=== PATIENT | female | born 1965 | race Caucasian/White ===

== ENCOUNTER 2017-11-02 13:09 | Inpatient (IN) | payer MEDICARE, MEDICAID ==
--- NOTE | 2017-11-02 13:36 | ED Physician Chart ---
ED Chief Complaint/HPI - Patient Information Date Seen:: 11/02/17 Time Seen:: 13:33 Chief Complaint:: gtube leaking History of Present Illness:: 52 yr old female from [place] for g-tube leaking pt non verbal trach g-tube multiple contractures and cerebral palsy Allergies:: Allergies Allergy/AdvReac Type Severity Reaction Status Date / Time No Known Allergies Allergy Verified 11/02/17 13:12 Vitals:: Vital Signs - 8 hr 11/02/17 13:13 Temp 98.1 F HR 111 RR 23 BP 96/75 O2 Sat % 93 Historian:: EMS, Medical Records ED Review of Systems - Review of Systems Skin: Skin lesions (pt non verbal and unable to get ROS) ED Past Medical History - Past Medical History Obtainable: No (RESP FAILURE WITH HYPOXIA,ABN POSTURE CTX'S,TRACH,GERD VENT DEPENDENCE) ED Physical Exam - Physical Examination General/Constitutional: Non-toxic appearing (PT WITH ARMS FLINGING SEVERE FLEXION CTXS ARMS LEGS TRACH STILL PATENT WITH MUCUS AND BAD DENTITION) Head: Atraumatic Other Skin comments:: SMALL RED SPOT LT ANKLE SKIN Neck: No JVD Respiratory: Nl effort/Exclusion Cardio Vascular: RRR, No murmur, gallop, rubs GI: No organomegaly : NL external genitalia Other Extremities comments:: EDEMA OF BOTH HANDS AND SKIN GRAFT DONOR SITE HEALED LT FOREARM ED Assessment - Assessment General Assessment: G-TUBE MALFUNCTION ED Septic Shock - . Is Septic Shock (SBP<90, OR Lactate>4 mmol\L) present?: No - <6hrs of presentation: Vital Signs: Vital Signs - 8 hr 11/02/17 13:13 Temp 98.1 F HR 111 RR 23 BP 96/75 O2 Sat % 93 ED Reassessment (Disposition) - Diagnosis Diagnosis:: G-TUBE MALFUNCTION FOR EVALUATION - Patient Disposition Discharge/Transfer:: Acute Care w/in this hosp
[2017-11-02 13:53] LABS: % EOSINOPHILS 3.4 % (0.0-5.0); % LYMPHOCYTES 30.8 % (20.0-50.0); % MONOCYTES 4.3 % (2.0-10.0); % NEUTROPHILS 61.5 % (40.0-80.0); EOSINOPHILE ABSOLUTE 0.3 Th/cmm (0.1-0.4); HEMATOCRIT 44.9 % (41.0-60); HEMOGLOBIN 15.1 gm/dL (12-16); MEAN CELL VOLUME 85.2 fl (81-100); MEAN CORPUSCULAR HEMOGLOBIN 28.6 pg (27.0-31.0); MEAN CORPUSCULAR HGB CONC 33.6 pg (28.0-36.0); MEAN PLATELET VOLUME 10.2 fl; MONOCYTE ABSOLUTE 0.4 Th/cmm (0.3-1.0); NEUTROPHILE ABSOLUTE 6.2 Th/cmm (1.8-8.0); PLATELET COUNT 247 Th/cmm (150-400); RED BLOOD COUNT 5.27 Mil/cmm (3.80-5.10); RED CELL DISTRIBUTION WIDTH 12.3 % (11.5-20.0); WHITE BLOOD COUNT 9.9 Th/cmm (4.8-10.8)
[2017-11-02 14:14] LABS: ALBUMIN 4.1 gm/dL (3.7-5.3); ALKALINE PHOSPHATASE 91 U/L (34-104); ANION GAP 11.9 (7.0-16.0); BILIRUBIN,TOTAL 0.5 mg/dL (0.3-1.0); BUN - UREA NITROGEN 19 mg/dL (7-25); CALCIUM SERUM 9.9 mg/dL (8.6-10.3); CARBON DIOXIDE 26.4 mEq/L (21.0-31.0); CHLORIDE 102 mEq/L (98-107); CREATININE - SERUM 0.5 mg/dL (0.6-1.2); GFR AFRICAN-AMERICAN > 60.0 ml/min (>90); GFR NON AFRICAN-AMERICAN > 60.0 ml/min; GLUCOSE 95 mg/dL (70-105); POTASSIUM SERUM 3.3 mEq/L (3.5-5.1); SGOT 36 U/L (13-39); SGPT/ALT 51 U/L (7-52); SODIUM SERUM 137 mEq/L (136-145); TOTAL PROTEIN,SERUM 8.1 gm/dL (6.0-8.3)
[2017-11-02 14:20] LABS: INR 0.94 (0.5-1.4); PROTHROMBIN TIME (TEST) 9.8 SECONDS (9.5-11.5)
[2017-11-02 14:27] LABS: TROP I < 0.01 ng/mL (0.01-0.05)
[2017-11-02 16:08] VITALS: BP 107/69
[2017-11-02] MEDS ORDERED: Potassium Chloride 20 MEQ, Lidocaine 1% 20mL Vial 25 MG in Sodium Chloride 0.9% 250 ML IV ONE (16:39)
[2017-11-02] MEDS ORDERED: KCL 20mEq/100mL Premix Bag IV ONE (17:00)
[2017-11-02] MEDS: D5-0.45NS 1,000 ML IV SCH (17:27)
[2017-11-02] MEDS ORDERED: Magnesium Hydroxide (MOM) 30 mL UDC GT PRN (18:46)
--- NOTE | 2017-11-02 21:45 | History & Physical ---
ADMIT DATE: 11/02/2017 HISTORY OF PRESENT ILLNESS: The patient was admitted on 11/02 to [facility] through the Emergency Room. The patient presented herself. Her G-tube was leaking. The patient is nonverbal, status post trach and PEG placement, and some multiple contracture on cerebral palsy. Unable to obtain any history. PHYSICAL EXAMINATION. SKIN: The patient has skin lesions. HEENT: Normal. NECK: Supple. She has tracheostomy. HEAD: Normal. LUNGS: Clear. CARDIOVASCULAR SYSTEM: S1, S2 heard. EXTREMITIES: She has edema on both the hands. Skin graft on the left forearm. DIAGNOSES: Status post trach, status post PEG, multiple contracture, G-tube malfunction, and history of skin graft. PLAN: The patient is being admitted and I will call the GI doctor to evaluate her. We will also do a sepsis workup. We will have Dr. Rashid see the patient as well. JOB# [id number]
[2017-11-02] MEDS: Albuterol/Ipratropium Neb 3 ML AERS HHN SCH (22:49)
--- NOTE | 2017-11-02 23:45 | Consultation ---
Consult Note - Consult Note Service Date: 11/02/17 Referring Physician: Florencio Tinsley Consult Note: PHYSICIAN Consultation Note: Date of Admission: 11/02/17 Purpose of Consultation: G-tube site cellulitis. Chief Complaint: Patient HENRIQUE PIERCE was admitted to [facility] Surgical Unit I with MALFUNCTIONING G-TUBE. History of Present Illness: 52 year female with a past medical history of essential hypertension GERD, dysphagia, G-tube placement, gastroparesis, left E contractured,, systolic and diastolic congestive heart failure, extrapyramidal movement disorder brought in from nursing facility for G-tube malfunction. The G-tube site has some surrounding erythema with the drainage of pus at the Center. On initial evaluation, her temperature 98.1F was and WBC count was 9900. Past Medical History: Allergies Allergy/AdvReac Type Severity Reaction Status Date / Time No Known Allergies Allergy Verified 11/02/17 13:12 Vital Signs Temp 97.9 F 11/02/17 20:00 Pulse 100 11/02/17 23:00 Resp 18 11/02/17 23:00 BP 93/73 11/02/17 20:00 Pulse Ox 91 11/02/17 23:00 Intake & Output 11/02/17 11/02/17 11/03/17 06:59 18:59 06:59 Intake Total 0 103.333 Balance 0 103.333 Weight (lbs) 38.828 kg 38.555 kg Intake: Intake, IV Amount 103.333 D5-0.45NS 1,000 ml @ 50 103.333 mls/hr IV .Q20H [facility] Rx#: [id number] Oral 0 Tube Feeding 0 Other: # Voids 1 Stool Characteristics Soft Weight Source Bedscale Estimated Laboratory Results - last 24 hr 11/02/17 11/02/17 11/02/17 13:41 13:41 13:41 WBC 9.9 RBC 5.27 H Hgb 15.1 Hct 44.9 MCV 85.2 MCH 28.6 MCHC Differential 33.6 RDW 12.3 Plt Count 247 MPV 10.2 Neutrophils % 61.5 Lymphocytes % 30.8 Monocytes % 4.3 Eosinophils % 3.4 Basophils % 0.0 PT 9.8 INR 0.94 PTT (Actin FS) 23.2 L Sodium 137 Potassium 3.3 L Chloride 102 Carbon Dioxide 26.4 Anion Gap 11.9 BUN 19 Creatinine 0.5 L Est GFR ( Amer) > 60.0 Est GFR (Non-Af Amer) > 60.0 BUN/Creatinine Ratio 38.0 Glucose 95 Whole Bld Lactic Acid Calcium 9.9 Total Bilirubin 0.5 AST 36 ALT 51 Alkaline Phosphatase 91 Troponin I Total Protein 8.1 Albumin 4.1 Globulin 4.0 Albumin/Globulin Ratio 1.0 11/02/17 13:41 WBC RBC Hgb Hct MCV MCH MCHC Differential RDW Plt Count MPV Neutrophils % Lymphocytes % Monocytes % Eosinophils % Basophils % PT INR PTT (Actin FS) Sodium Potassium Chloride Carbon Dioxide Anion Gap BUN Creatinine Est GFR ( Amer) Est GFR (Non-Af Amer) BUN/Creatinine Ratio Glucose Whole Bld Lactic Acid 0.91 Calcium Total Bilirubin AST ALT Alkaline Phosphatase Troponin I < 0.01 L Total Protein Albumin Globulin Albumin/Globulin Ratio Home Medication Medication Instructions Recorded Type Acetaminophen [Tylenol] 650 mg GT Q6HR PRN 11/02/17 History Albuterol/Ipratropium Neb [Duoneb 3 ml HHN TID 11/02/17 History Neb] Baclofen [Lioresal*] 10 mg GT DAILY 11/02/17 History Benztropine [Cogentin*] 0.5 mg GT DAILY 11/02/17 History Bisacodyl [Dulcolax 10 Mg Supp] 10 mg RC DAILY PRN 11/02/17 History Clonazepam [Klonopin] 0.5 mg GT Q12H 11/02/17 History Dextran 70/Hypromellose 2 each OP Q6H PRN 11/02/17 History [Artificial Tears] Furosemide [Lasix] 20 mg GT BID 11/02/17 History Magnesium Hydroxide [Milk of 30 ml GT DAILY PRN 11/02/17 History Magnesia] Metoclopramide [Reglan] 5 mg GT Q8H 11/02/17 History Metoprolol Tartrate [Lopressor] 12.5 mg GT Q12H 11/02/17 History Multivit &Minerals/Ferrous Fum 9 mg GT DAILY 11/02/17 History [Multivitamin Liquid] Current Medications Generic Name Dose Route Start Last Admin Trade Name Freq PRN Reason Stop Dose Admin Acetaminophen 650 mg 11/02/17 18:46 Tylenol GT 01/01/18 18:45 Q6HR PRN TEMP >101 OR PAIN Albuterol/Ipratropium 3 ml 11/02/17 23:00 11/02/17 22:49 Duoneb Neb HHN 01/01/18 22:59 3 ml TIDRT [facility] Administration Baclofen 10 mg 11/03/17 09:00 Lioresal GT 01/02/18 08:59 DAILY [facility] Benztropine Mesylate 0.5 mg 11/03/17 09:00 Cogentin GT 01/02/18 08:59 DAILY [facility] Bisacodyl 10 mg 11/02/17 18:46 Dulcolax 10 Mg Supp RC 01/01/18 18:45 DAILY PRN IF MOM INEFFECTIVE Clonazepam 0.5 mg 11/02/17 19:00 Klonopin GT 01/01/18 18:59 Q12H [facility] Protocol Furosemide 20 mg 11/03/17 09:00 Lasix GT 01/02/18 08:59 BID [facility] Dextrose/Sodium Chloride 1,000 mls @ 50 mls/hr 11/02/17 17:00 11/02/17 19:31 D5-0.45ns IV 01/01/18 16:59 50 mls/hr .Q20H [facility] Infusion Magnesium Hydroxide 30 ml 11/02/17 18:46 Milk Of Magnesia GT 01/01/18 18:45 DAILY PRN IF NO BM IN THREE DAYS Metoclopramide HCl 5 mg 11/02/17 19:00 Reglan GT 01/01/18 18:59 Q8H [facility] Miscellaneous 2 each 11/02/17 18:46 Dextran 70/Hypromellose [Artificial Tears] OP Q6H PRN DRY EYES/REDNESS Review of Systems: A 12 point ROS was reviewed with the pertinent positive and negatives noted in the HPI. Social History Lives at nursing facility. Smoking Status Unknown if ever smoked Physical Exam: General: Comfortable, cachectic. Not in acute distress. Patient has involuntary movement of both upper extremities. HEENT: Head: Normocytic, atraumatic. Oral cavity: Moist, pink tongue. Eyes: Pallor is present icterus. Pupil PERRLA. EOMI. Neck: Supple, trachea in midline. No use of accessory neck muscles. Tracheostoma. Cardio: S1 and S2 within normal limits. Respiratory: Vesicular breath sound no crackles or wheezing Abdominal: Soft, nontender nondistended bowel sounds present patient has G-tube site draining pus with surrounding erythema. Genital/Urinary: Deferred. Extremities: No cyanosis, no clubbing no edema. Neurological: Alert, awake. Dystonic involuntary movement of both upper extremity Assessment: 1. G-tube malfunction. 2. Abdominal wall cellulitis. 3. Dysphagia. Plan: Start Rocephin. Thank you, Dr Tinsley for involving me in taking care of this patient. Signed, Gregg Rashid M.D. 11/02/[id number]
[2017-11-03] MEDS: Albuterol/Ipratropium Neb 3 ML AERS HHN SCH ×2 (07:47→15:02)
[2017-11-03] MEDS ORDERED: Polyvinyl Alcohol Ophth Soln 15 mL Bottle EACH EYE PRN (08:06)
--- NOTE | 2017-11-03 08:24 | Diagnostic Imaging Report ---
CHEST X-RAY: AP view INDICATION: Cough COMPARISON: None FINDINGS: Low lung volumes are noted with increased interstitial lung markings. There may be a small left effusion. There is elevation of the right hemidiaphragm. Cardiomegaly is noted. There is prominence of right paratracheal soft tissue. Right sided Port-A-Cath is seen with tip in the right atrium. The osseous structures are intact. Postsurgical changes right upper quadrant is noted with tubing material projecting along the right upper quadrant, correlate clinically. The osseous structures are intact. IMPRESSION: Suboptimal lung volumes with increased interstitial lung markings. Findings are nonspecific and may be due to chronic lung changes. No evidence of ruth CHF. Possible small left effusion. There may be atelectasis versus less likely infiltrate of the left lung base. Cardiomegaly. Right paratracheal soft tissue density probably related to prominent vasculature. If necessary, CT follow-up may be obtained for further assessment.
--- NOTE | 2017-11-03 08:26 | Diagnostic Imaging Report ---
KUB single view HISTORY: G-tube malfunction COMPARISON: None FINDINGS: G-tube is seen in the region of the stomach. Cholecystectomy clips are noted. Diffuse gas-filled loops of bowel are seen with severe distal fecal impaction. Degenerative changes of the spine are noted. Nonspecific calcifications of the bilateral mid abdominal regions are noted. IMPRESSION: G-tube noted. Please perform upper GI G-tube check for further assessment if indicated. Severe distal fecal impaction. Generalized dilated loops of gas-filled bowel are seen proximally which may be secondary to patient's distal fecal impaction Nonspecific calcifications of the bilateral mid abdominal regions. Findings may represent renal calcifications. If indicated CT follow-up may be obtained. Evidence of prior cholecystectomy.
--- NOTE | 2017-11-03 15:19 | General Progress Note ---
Subjective - Review of Systems Service Date: 11/03/17 Subjective: awake no distress Objective - Results Result Diagrams: 11/02/17 13:41 11/02/17 13:41 Recent Labs: Laboratory Last Values WBC 9.9 Th/cmm (4.8-10.8) 11/02/17 13:41 RBC 5.27 Mil/cmm (3.80-5.10) H 11/02/17 13:41 Hgb 15.1 gm/dL (12-16) 11/02/17 13:41 Hct 44.9 % (41.0-60) 11/02/17 13:41 MCV 85.2 fl (81-100) 11/02/17 13:41 MCH 28.6 pg (27.0-31.0) 11/02/17 13:41 MCHC Differential 33.6 pg (28.0-36.0) 11/02/17 13:41 RDW 12.3 % (11.5-20.0) 11/02/17 13:41 Plt Count 247 Th/cmm (150-400) 11/02/17 13:41 MPV 10.2 fl 11/02/17 13:41 Neutrophils % 61.5 % (40.0-80.0) 11/02/17 13:41 Lymphocytes % 30.8 % (20.0-50.0) 11/02/17 13:41 Monocytes % 4.3 % (2.0-10.0) 11/02/17 13:41 Eosinophils % 3.4 % (0.0-5.0) 11/02/17 13:41 Basophils % 0.0 % (0.0-2.0) 11/02/17 13:41 PT 9.8 SECONDS (9.5-11.5) 11/02/17 13:41 INR 0.94 (0.5-1.4) 11/02/17 13:41 PTT (Actin FS) 23.2 SECONDS (26.0-38.0) L 11/02/17 13:41 Sodium 137 mEq/L (136-145) 11/02/17 13:41 Potassium 3.3 mEq/L (3.5-5.1) L 11/02/17 13:41 Chloride 102 mEq/L (98-107) 11/02/17 13:41 Carbon Dioxide 26.4 mEq/L (21.0-31.0) 11/02/17 13:41 Anion Gap 11.9 (7.0-16.0) 11/02/17 13:41 BUN 19 mg/dL (7-25) 11/02/17 13:41 Creatinine 0.5 mg/dL (0.6-1.2) L 11/02/17 13:41 Est GFR ( Amer) > 60.0 ml/min (>90) 11/02/17 13:41 Est GFR (Non-Af Amer) > 60.0 ml/min 11/02/17 13:41 BUN/Creatinine Ratio 38.0 11/02/17 13:41 Glucose 95 mg/dL (70-105) 11/02/17 13:41 Whole Bld Lactic Acid 0.91 mmol/L (0.60-1.99) 11/02/17 13:41 Calcium 9.9 mg/dL (8.6-10.3) 11/02/17 13:41 Total Bilirubin 0.5 mg/dL (0.3-1.0) 11/02/17 13:41 AST 36 U/L (13-39) 11/02/17 13:41 ALT 51 U/L (7-52) 11/02/17 13:41 Alkaline Phosphatase 91 U/L (34-104) 11/02/17 13:41 Troponin I < 0.01 ng/mL (0.01-0.05) L 11/02/17 13:41 Total Protein 8.1 gm/dL (6.0-8.3) 11/02/17 13:41 Albumin 4.1 gm/dL (3.7-5.3) 11/02/17 13:41 Globulin 4.0 gm/dL 11/02/17 13:41 Albumin/Globulin Ratio 1.0 (1.0-1.8) 11/02/17 13:41 - Physical Exam Vitals and I&O: Vital Signs Temp 97.9 F 11/03/17 11:50 Pulse 99 11/03/17 15:03 Resp 22 11/03/17 15:03 BP 129/64 11/03/17 11:50 Pulse Ox 93 11/03/17 15:03 Intake & Output 11/02/17 11/03/1711/03/18 18:59 06:59 18:59 Intake Total 0 143.333 Balance 0 143.333 Weight (lbs) 38.828 kg 39.236 kg Intake: Intake, IV Amount 143.333 D5-0.45NS 1,000 ml @ 50 103.333 mls/hr IV .Q20H [facility] Rx#: [id number] cefTRIAXone 1 gm In 40 Dextrose 5% 50 ml @ 100 mls/hr IV Q24H [facility] Rx#: [id number] Oral 0 Tube Feeding 0 Other: # Voids 1 Stool Characteristics Soft Weight Source Bedscale Bedscale Active Medications: Current Medications Acetaminophen (Tylenol) 650 mg GT Q6HR PRN PRN Reason: TEMP >101 OR PAIN Stop: 01/01/18 18:45 Albuterol/Ipratropium (Duoneb Neb) 3 ml HHN TIDRT [facility] Stop: 01/01/18 22:59 Last Admin: 11/03/17 15:02 Dose: 3 ml Artificial Tears (Artificial Tears Ophth Soln) 2 drop EACH EYE Q6H PRN PRN Reason: Dry Eye Stop: 01/02/18 08:05 Baclofen (Lioresal) 10 mg GT DAILY [facility] Stop: 01/02/18 08:59 Last Admin: 11/03/17 08:51 Dose: Not Given Benztropine Mesylate (Cogentin) 0.5 mg GT DAILY [facility] Stop: 01/02/18 08:59 Last Admin: 11/03/17 08:51 Dose: Not Given Bisacodyl (Dulcolax 10 Mg Supp) 10 mg RC DAILY PRN PRN Reason: IF MOM INEFFECTIVE Stop: 01/01/18 18:45 Clonazepam (Klonopin) 0.5 mg GT Q12H [facility]; Protocol Stop: 01/01/18 18:59 Last Admin: 11/03/17 10:05 Dose: Not Given Furosemide (Lasix) 20 mg GT BID [facility] Stop: 01/02/18 08:59 Last Admin: 11/03/17 08:51 Dose: Not Given Dextrose/Sodium Chloride (D5-0.45ns) 1,000 mls @ 50 mls/hr IV .Q20H [facility] Stop: 01/01/18 16:59 Last Infusion: 11/02/17 19:31 Dose: 50 mls/hr Ceftriaxone Sodium 1 gm/ (Dextrose) 50 mls @ 100 mls/hr IV Q24H [facility] Stop: 01/02/18 00:00 Last Infusion: 11/03/17 00:22 Dose: 100 mls/hr Magnesium Hydroxide (Milk Of Magnesia) 30 ml GT DAILY PRN PRN Reason: IF NO BM IN THREE DAYS Stop: 01/01/18 18:45 Metoclopramide HCl (Reglan) 5 mg GT Q8H [facility] Stop: 01/01/18 18:59 Last Admin: 11/03/17 12:55 Dose: Not Given General: Alert, No acute distress HEENT: Atraumatic Cardiovascular: Regular rate Abdomen: Bowel sounds Assessment/Plan - Problem List Patient Problems: All Active Problems GASTRIC TUBE MALFUNCTION WITH LEAKAGE (Acute) - Assessment Assessment: status post trach status post peg gtube mallfunction h/o skin graft - Plan Plan: cpm
--- NOTE | 2017-11-03 15:48 | Infectious Disease Prog Note ---
Infectious Disease Subjective - Review of Systems Service Date: 11/03/17 Subjective: No fever. Infectious Disease Objective - Results Result Diagrams: 11/02/17 13:41 11/02/17 13:41 Recent Labs: Laboratory Last Values WBC 9.9 Th/cmm (4.8-10.8) 11/02/17 13:41 RBC 5.27 Mil/cmm (3.80-5.10) H 11/02/17 13:41 Hgb 15.1 gm/dL (12-16) 11/02/17 13:41 Hct 44.9 % (41.0-60) 11/02/17 13:41 MCV 85.2 fl (81-100) 11/02/17 13:41 MCH 28.6 pg (27.0-31.0) 11/02/17 13:41 MCHC Differential 33.6 pg (28.0-36.0) 11/02/17 13:41 RDW 12.3 % (11.5-20.0) 11/02/17 13:41 Plt Count 247 Th/cmm (150-400) 11/02/17 13:41 MPV 10.2 fl 11/02/17 13:41 Neutrophils % 61.5 % (40.0-80.0) 11/02/17 13:41 Lymphocytes % 30.8 % (20.0-50.0) 11/02/17 13:41 Monocytes % 4.3 % (2.0-10.0) 11/02/17 13:41 Eosinophils % 3.4 % (0.0-5.0) 11/02/17 13:41 Basophils % 0.0 % (0.0-2.0) 11/02/17 13:41 PT 9.8 SECONDS (9.5-11.5) 11/02/17 13:41 INR 0.94 (0.5-1.4) 11/02/17 13:41 PTT (Actin FS) 23.2 SECONDS (26.0-38.0) L 11/02/17 13:41 Sodium 137 mEq/L (136-145) 11/02/17 13:41 Potassium 3.3 mEq/L (3.5-5.1) L 11/02/17 13:41 Chloride 102 mEq/L (98-107) 11/02/17 13:41 Carbon Dioxide 26.4 mEq/L (21.0-31.0) 11/02/17 13:41 Anion Gap 11.9 (7.0-16.0) 11/02/17 13:41 BUN 19 mg/dL (7-25) 11/02/17 13:41 Creatinine 0.5 mg/dL (0.6-1.2) L 11/02/17 13:41 Est GFR ( Amer) > 60.0 ml/min (>90) 11/02/17 13:41 Est GFR (Non-Af Amer) > 60.0 ml/min 11/02/17 13:41 BUN/Creatinine Ratio 38.0 11/02/17 13:41 Glucose 95 mg/dL (70-105) 11/02/17 13:41 Whole Bld Lactic Acid 0.91 mmol/L (0.60-1.99) 11/02/17 13:41 Calcium 9.9 mg/dL (8.6-10.3) 11/02/17 13:41 Total Bilirubin 0.5 mg/dL (0.3-1.0) 11/02/17 13:41 AST 36 U/L (13-39) 11/02/17 13:41 ALT 51 U/L (7-52) 11/02/17 13:41 Alkaline Phosphatase 91 U/L (34-104) 11/02/17 13:41 Troponin I < 0.01 ng/mL (0.01-0.05) L 11/02/17 13:41 Total Protein 8.1 gm/dL (6.0-8.3) 11/02/17 13:41 Albumin 4.1 gm/dL (3.7-5.3) 11/02/17 13:41 Globulin 4.0 gm/dL 11/02/17 13:41 Albumin/Globulin Ratio 1.0 (1.0-1.8) 11/02/17 13:41 - Physical Exam Vitals and I&O: Vital Signs Temp 97.5 F 11/03/17 15:43 Pulse 81 11/03/17 15:43 Resp 18 11/03/17 15:43 BP 122/69 11/03/17 15:43 Pulse Ox 99 11/03/17 15:43 Intake & Output 11/02/17 11/03/17 11/03/17 18:59 06:59 18:59 Intake Total 0 143.333 Balance 0 143.333 Weight (lbs) 38.828 kg 39.236 kg Intake: Intake, IV Amount 143.333 D5-0.45NS 1,000 ml @ 50 103.333 mls/hr IV .Q20H [facility] Rx#: [id number] cefTRIAXone 1 gm In 40 Dextrose 5% 50 ml @ 100 mls/hr IV Q24H [facility] Rx#: [id number] Oral 0 Tube Feeding 0 Other: # Voids 1 Stool Characteristics Soft Weight Source Bedscale Bedscale Active Medications: Current Medications Acetaminophen (Tylenol) 650 mg GT Q6HR PRN PRN Reason: TEMP >101 OR PAIN Stop: 01/01/18 18:45 Albuterol/Ipratropium (Duoneb Neb) 3 ml HHN TIDRT [facility] Stop: 01/01/18 22:59 Last Admin: 11/03/17 15:02 Dose: 3 ml Artificial Tears (Artificial Tears Ophth Soln) 2 drop EACH EYE Q6H PRN PRN Reason: Dry Eye Stop: 01/02/18 08:05 Baclofen (Lioresal) 10 mg GT DAILY [facility] Stop: 01/02/18 08:59 Last Admin: 11/03/17 08:51 Dose: Not Given Benztropine Mesylate (Cogentin) 0.5 mg GT DAILY [facility] Stop: 01/02/18 08:59 Last Admin: 11/03/17 08:51 Dose: Not Given Bisacodyl (Dulcolax 10 Mg Supp) 10 mg RC DAILY PRN PRN Reason: IF MOM INEFFECTIVE Stop: 01/01/18 18:45 Clonazepam (Klonopin) 0.5 mg GT Q12H [facility]; Protocol Stop: 01/01/18 18:59 Last Admin: 11/03/17 10:05 Dose: Not Given Furosemide (Lasix) 20 mg GT BID [facility] Stop: 01/02/18 08:59 Last Admin: 11/03/17 08:51 Dose: Not Given Dextrose/Sodium Chloride (D5-0.45ns) 1,000 mls @ 50 mls/hr IV .Q20H [facility] Stop: 01/01/18 16:59 Last Infusion: 11/02/17 19:31 Dose: 50 mls/hr Ceftriaxone Sodium 1 gm/ (Dextrose) 50 mls @ 100 mls/hr IV Q24H [facility] Stop: 01/02/18 00:00 Last Infusion: 11/03/17 00:22 Dose: 100 mls/hr Magnesium Hydroxide (Milk Of Magnesia) 30 ml GT DAILY PRN PRN Reason: IF NO BM IN THREE DAYS Stop: 01/01/18 18:45 Metoclopramide HCl (Reglan) 5 mg GT Q8H [facility] Stop: 01/01/18 18:59 Last Admin: 11/03/17 12:55 Dose: Not Given General: no acute distress, cachectic HEENT: atraumatic, normocephalic, PERRLA, EOMI Neck: supple, no thyromegaly Cardiovascular: S1S2, regular Lungs: clear to auscultation bilaterally, clear to percussion Abdomen: soft, other (G tube site erythema. ), no tender, no distended, no rebound, no hepatomegaly Extremities: no cyanosis, no clubbing, no edema Neurological: awake, alert Skin: intact Infectious Disease Assmt/Plan - Problem List Patient Problems: All Active Problems GASTRIC TUBE MALFUNCTION WITH LEAKAGE (Acute) - Assessment Assessment: 1. G-tube malfunction. 2. Abdominal wall cellulitis. 3. Dysphagia - Plan Plan: Continue wound care. Continue Rocephin.
[2017-11-03] MEDS: D5-0.45NS 1,000 ML IV SCH (17:13)
--- NOTE | 2017-11-03 22:41 | Operative Report ---
DATE OF SURGERY: 11/03/2017 PROCEDURE: Change of G-tube. INDICATION FOR PROCEDURE: Malfunctioning G-tube. PREOPERATIVE DIAGNOSIS: Malfunctioning G-tube. POSTOPERATIVE DIAGNOSES: Malfunctioning G-tube, status post change. DESCRIPTION OF PROCEDURE: The patient lying on her back. The old G-tube was deflated, pulled out. A new replacement, one size 22 was inspected and checked. I saw it was working fine, then it was inserted through the same hole. Balloon was inflated. G-tube was secured in place. Water was infused to the stomach, aspirated, and documenting its good position. RECOMMENDATIONS: Resume feeding. JOB# [id number]
[2017-11-04] MEDS: Albuterol/Ipratropium Neb 3 ML AERS HHN SCH ×4 (00:01→22:45)
[2017-11-04] MEDS ORDERED: Probiotic Screen MC PRN (08:45)
[2017-11-04] MEDS ORDERED: Lactobacillus Rhamnosus GG 15 Billion CFU CAP.SPRINK PO SCH (09:00)
[2017-11-04] MEDS: Lactobacillus Rhamnosus GG 15 Billion CFU CAP.SPRINK GT SCH (10:24)
[2017-11-04] MEDS: Multivitamin w/ Minerals Tab GT SCH (10:24)
[2017-11-04] MEDS: D5-0.45NS 1,000 ML IV SCH (10:25)
--- NOTE | 2017-11-04 15:59 | Consultation ---
DATE OF CONSULTATION: 11/03/2017 REASON FOR CONSULTATION: Malfunctioning G-tube. This consult was obtained through the courtesy of Dr. Tinsley for this 52-year-old with history of dysphagia, also history of mentally challenged, who was admitted to the hospital yesterday for leaking G-tube. GI consult was called in for further evaluation. Apparently, the patient lives in a retirement. She was transferred here for malfunctioning G-tube with cellulitis of the G-tube site at leaking. She also has history of congestive heart failure, extrapyramidal movements and dysphagia. PAST MEDICAL HISTORY: As above. PAST SURGICAL HISTORY: Not known. SOCIAL HISTORY: Nonsmoker, alcoholic, IV drug abuser. FAMILY HISTORY: Noncontributory. ALLERGIES: No known drug allergies. MEDICATIONS: Tylenol, albuterol, baclofen, Cogentin, Dulcolax, Rocephin, Klonopin, Lasix, milk of magnesia, Reglan. PHYSICAL EXAMINATION: GENERAL: The patient is awake, seems to be responsive, not oriented. VITAL SIGNS: Blood pressure is 120/69, heart rate 81, respiratory rate 18, temperature is 97.5. HEAD AND NECK: Pupils reactive to light. Extraocular muscles could not be tested. Oral cavity, no lesion. NECK: Supple. CHEST: Good air entry. LUNGS: Clear to auscultation. CARDIOVASCULAR: Regular rate and rhythm. No murmur or gallop. ABDOMEN: Soft, positive bowel sound. There is G-tube site looks a little bit erythematous and the G-tube site is cracked. Bowel sounds are present. EXTREMITIES: Lower extremities, no edema. CENTRAL NERVOUS SYSTEM: The patient is moving 4 extremities. LABORATORY DATA: CBC unremarkable. PT is normal. Chemistry showed normal liver enzymes. IMPRESSION: A 52-year-old with dysphagia and malfunctioning G-tube. ASSESSMENT AND PLAN: 1. Malfunctioning G-tube, would need to be changed, so we will do it by the bedside and then resume feeding. 2. Dysphagia. Once G-tube is replaced then we will resume feeding. 3. Other medical problems such as mentally challenged, congestive heart failure, etc., as per Dr. Tinsley and other consultants. Thank you, Dr. Tinsley, for allowing us to participate in the care of the patient. If you have any further questions, please let me know. JOB# [id number]
--- NOTE | 2017-11-04 22:31 | Infectious Disease Prog Note ---
Infectious Disease Subjective - Review of Systems Service Date: 11/04/17 Subjective: No fever. Infectious Disease Objective - Results Result Diagrams: 11/02/17 13:41 11/02/17 13:41 Recent Labs: Laboratory Last Values WBC 9.9 Th/cmm (4.8-10.8) 11/02/17 13:41 RBC 5.27 Mil/cmm (3.80-5.10) H 11/02/17 13:41 Hgb 15.1 gm/dL (12-16) 11/02/17 13:41 Hct 44.9 % (41.0-60) 11/02/17 13:41 MCV 85.2 fl (81-100) 11/02/17 13:41 MCH 28.6 pg (27.0-31.0) 11/02/17 13:41 MCHC Differential 33.6 pg (28.0-36.0) 11/02/17 13:41 RDW 12.3 % (11.5-20.0) 11/02/17 13:41 Plt Count 247 Th/cmm (150-400) 11/02/17 13:41 MPV 10.2 fl 11/02/17 13:41 Neutrophils % 61.5 % (40.0-80.0) 11/02/17 13:41 Lymphocytes % 30.8 % (20.0-50.0) 11/02/17 13:41 Monocytes % 4.3 % (2.0-10.0) 11/02/17 13:41 Eosinophils % 3.4 % (0.0-5.0) 11/02/17 13:41 Basophils % 0.0 % (0.0-2.0) 11/02/17 13:41 PT 9.8 SECONDS (9.5-11.5) 11/02/17 13:41 INR 0.94 (0.5-1.4) 11/02/17 13:41 PTT (Actin FS) 23.2 SECONDS (26.0-38.0) L 11/02/17 13:41 Sodium 137 mEq/L (136-145) 11/02/17 13:41 Potassium 3.3 mEq/L (3.5-5.1) L 11/02/17 13:41 Chloride 102 mEq/L (98-107) 11/02/17 13:41 Carbon Dioxide 26.4 mEq/L (21.0-31.0) 11/02/17 13:41 Anion Gap 11.9 (7.0-16.0) 11/02/17 13:41 BUN 19 mg/dL (7-25) 11/02/17 13:41 Creatinine 0.5 mg/dL (0.6-1.2) L 11/02/17 13:41 Est GFR ( Amer) > 60.0 ml/min (>90) 11/02/17 13:41 Est GFR (Non-Af Amer) > 60.0 ml/min 11/02/17 13:41 BUN/Creatinine Ratio 38.0 11/02/17 13:41 Glucose 95 mg/dL (70-105) 11/02/17 13:41 Whole Bld Lactic Acid 0.91 mmol/L (0.60-1.99) 11/02/17 13:41 Calcium 9.9 mg/dL (8.6-10.3) 11/02/17 13:41 Total Bilirubin 0.5 mg/dL (0.3-1.0) 11/02/17 13:41 AST 36 U/L (13-39) 11/02/17 13:41 ALT 51 U/L (7-52) 11/02/17 13:41 Alkaline Phosphatase 91 U/L (34-104) 11/02/17 13:41 Troponin I < 0.01 ng/mL (0.01-0.05) L 11/02/17 13:41 Total Protein 8.1 gm/dL (6.0-8.3) 11/02/17 13:41 Albumin 4.1 gm/dL (3.7-5.3) 11/02/17 13:41 Globulin 4.0 gm/dL 11/02/17 13:41 Albumin/Globulin Ratio 1.0 (1.0-1.8) 11/02/17 13:41 - Physical Exam Vitals and I&O: Vital Signs Temp 98.9 F 11/04/17 15:53 Pulse 110 11/04/17 21:56 Resp 18 11/04/17 15:53 BP 122/61 11/04/17 21:56 Pulse Ox 96 11/04/17 15:53 Intake & Output 11/04/17 11/04/17 11/05/17 06:59 18:59 06:59 Intake Total 1690 1269.167 Balance 1690 1269.167 Weight (lbs) 39.463 kg 39.746 kg Intake: Intake, IV Amount 690 149.167 D5-0.45NS 1,000 ml @ 50 640 149.167 mls/hr IV .Q20H [facility] Rx#: [id number] cefTRIAXone 1 gm In 50 Dextrose 5% 50 ml @ 100 mls/hr IV Q24H [facility] Rx#: [id number] Tube Feeding 600 720 Other 400 400 Other: # Voids 3 # Bowel Movements 1 Weight Source Bedscale Bedscale Active Medications: Current Medications Acetaminophen (Tylenol) 650 mg GT Q6HR PRN PRN Reason: TEMP >101 OR PAIN Stop: 01/01/18 18:45 Albuterol/Ipratropium (Duoneb Neb) 3 ml HHN TIDRT SELVIN Stop: 01/01/18 22:59 Last Admin: 11/04/17 15:35 Dose: 3 ml Artificial Tears (Artificial Tears Ophth Soln) 2 drop EACH EYE Q6H PRN PRN Reason: Dry Eye Stop: 01/02/18 08:05 Baclofen (Lioresal) 10 mg GT DAILY [facility] Stop: 01/02/18 08:59 Last Admin: 11/04/17 09:45 Dose: 10 mg Benztropine Mesylate (Cogentin) 0.5 mg GT DAILY [facility] Stop: 01/02/18 08:59 Last Admin: 11/04/17 10:24 Dose: 0.5 mg Bisacodyl (Dulcolax 10 Mg Supp) 10 mg RC DAILY PRN PRN Reason: IF MOM INEFFECTIVE Stop: 01/01/18 18:45 Clonazepam (Klonopin) 0.5 mg GT Q12H [facility]; Protocol Stop: 01/01/18 18:59 Last Admin: 11/04/17 06:01 Dose: Not Given Furosemide (Lasix) 20 mg GT BID SELVIN Stop: 01/02/18 08:59 Last Admin: 11/04/17 16:53 Dose: 20 mg Dextrose/Sodium Chloride (D5-0.45ns) 1,000 mls @ 50 mls/hr IV .Q20H [facility] Stop: 01/01/18 16:59 Last Admin: 11/04/17 10:25 Dose: 50 mls/hr Ceftriaxone Sodium 1 gm/ (Dextrose) 50 mls @ 100 mls/hr IV Q24H [facility] Stop: 01/02/18 00:00 Last Infusion: 11/04/17 02:14 Dose: Infused Lactobacillus Rhamnosus (Culturelle 15b) 1 each GT DAILY SELVIN Stop: 01/03/18 08:59 Last Admin: 11/04/17 10:24 Dose: 1 each Magnesium Hydroxide (Milk Of Magnesia) 30 ml GT DAILY PRN PRN Reason: IF NO BM IN THREE DAYS Stop: 01/01/18 18:45 Metoclopramide HCl (Reglan) 5 mg GT Q8H [facility] Stop: 01/01/18 18:59 Last Admin: 11/04/17 21:57 Dose: 5 mg Metoprolol Tartrate (Lopressor) 12.5 mg GT Q12HR [facility] Stop: 01/02/18 20:59 Last Admin: 11/04/17 21:56 Dose: 12.5 mg Miscellaneous (Probiotic Screen) 1 ea MC PRN PRN PRN Reason: PROTOCOL Stop: 01/03/18 08:44 General: no acute distress HEENT: atraumatic, normocephalic, PERRLA, EOMI Neck: supple, no thyromegaly Cardiovascular: S1S2, regular Lungs: no clear to auscultation bilaterally, no clear to percussion Abdomen: soft, other (g tube site erythema), no tender Extremities: no cyanosis, no clubbing, no edema Neurological: awake, alert Skin: intact Infectious Disease Assmt/Plan - Problem List Patient Problems: All Active Problems GASTRIC TUBE MALFUNCTION WITH LEAKAGE (Acute) - Assessment Assessment: 1. G-tube malfunction. 2. Abdominal wall cellulitis. 3. Dysphagia - Plan Plan: Continue wound care. Continue Rocephin. Nutritional Asmnt/Malnutr-PDOC - Dietary Evaluation Malnutrition Findings (Please click <Entered> for more info): Nutritional Asmnt/Malnutrition Start: 11/03/17 15: 52 Text: Status: Complete Freq: Protocol: Document 11/03/17 15:52 LCHENG (Rec: 11/03/17 16:03 GBAE [email or web address]) Nutritional Asmnt/Malnutrition Patient General Information Nutritional Screening High Risk Diagnosis malfunctioning G-tube Pertinent Medical Hx/Surgical Hx s/p trach, PEG, cerebral palsy Subjective Information Pt seen non-verbal. pt is on NPO, nutrition support not initiated d/t gtube site infection. Current Diet Order/ Nutrition Support NPO Pertinent Medications D5-0.45ns, lasix, reglan Pertinent Labs 11/02 K 3.3, Cr 0.5 Nutritional Hx/Data Height 1.55 m Height (Calculated Centimeters) 154.9 Current Weight (lbs) 39.463 kg Weight (Calculated Kilograms) 39.5 Weight (Calculated Grams) 26413.5 [place] Body Weight 105 Body Mass Index (BMI) 16.4 Weight Status Underweight GI Symptoms GI Symptoms None Last BM not indicated Difficult in: None Skin Integrity/Comment: gtube site red, rash to neck, scar to left ankle Estimated Nutritional Goals BEE in Kcals: Using Current wt Calories/Kcals/Kg 30-35 Kcals Calculated 8779-9180 Protein: Using Current wt Protein g/k.2 Protein Calculated 48 Fluid: ml 1200-1400ml (1ml/kcal) Nutritional Problem 2. Problem Problem altered nutrition related lab Etiology electrolyte imbalance Signs/Symptoms: K 3.3 1. Problem Problem inadequate energy intake Etiology Gtube malfunction Signs/Symptoms: TF not initaited Malnutrition Alert Is there a minimum of two criteria No selected? Query Text:Check all the applicable criteria. A minimum of two criteria are recommended for diagnosis of either severe or non-severe malnutrition. Malnutrition Related to Morbid Obesity Malnutrition related to morbid obesity No Intervention/Recommendation Comments 1. Monitor NPO status. If tube feeding needed, recommend Jevity 1.2 at 50ml x 20hr. It provides 1200kcal, 54g protein, 810ml free water, meeting 100% of nutritional needs. 2. Monitor wt, skin integrity and labs 3. F/U as high risk in 2-3 days, 11/05-11/06 Expected Outcomes/Goals Expected Outcomes/Goals 1. Pt to meet at least 75% of nutritional needs via nutrition support with tolerance 2. Wt stability, skin to remain intact, labs to approach WNL.
[2017-11-05] MEDS: Albuterol/Ipratropium Neb 3 ML AERS HHN SCH ×2 (06:37→14:06)
[2017-11-05] MEDS: Lactobacillus Rhamnosus GG 15 Billion CFU CAP.SPRINK GT SCH (09:44)
[2017-11-05] MEDS: Multivitamin w/ Minerals Tab GT SCH (09:46)
--- NOTE | 2017-11-05 14:32 | General Progress Note ---
Subjective - Review of Systems Events since last encounter: no fever no distress Subjective: awake no distress Objective - Results Result Diagrams: 11/02/17 13:41 11/02/17 13:41 Recent Labs: Laboratory Last Values WBC 9.9 Th/cmm (4.8-10.8) 11/02/17 13:41 RBC 5.27 Mil/cmm (3.80-5.10) H 11/02/17 13:41 Hgb 15.1 gm/dL (12-16) 11/02/17 13:41 Hct 44.9 % (41.0-60) 11/02/17 13:41 MCV 85.2 fl (81-100) 11/02/17 13:41 MCH 28.6 pg (27.0-31.0) 11/02/17 13:41 MCHC Differential 33.6 pg (28.0-36.0) 11/02/17 13:41 RDW 12.3 % (11.5-20.0) 11/02/17 13:41 Plt Count 247 Th/cmm (150-400) 11/02/17 13:41 MPV 10.2 fl 11/02/17 13:41 Neutrophils % 61.5 % (40.0-80.0) 11/02/17 13:41 Lymphocytes % 30.8 % (20.0-50.0) 11/02/17 13:41 Monocytes % 4.3 % (2.0-10.0) 11/02/17 13:41 Eosinophils % 3.4 % (0.0-5.0) 11/02/17 13:41 Basophils % 0.0 % (0.0-2.0) 11/02/17 13:41 PT 9.8 SECONDS (9.5-11.5) 11/02/17 13:41 INR 0.94 (0.5-1.4) 11/02/17 13:41 PTT (Actin FS) 23.2 SECONDS (26.0-38.0) L 11/02/17 13:41 Sodium 137 mEq/L (136-145) 11/02/17 13:41 Potassium 3.3 mEq/L (3.5-5.1) L 11/02/17 13:41 Chloride 102 mEq/L (98-107) 11/02/17 13:41 Carbon Dioxide 26.4 mEq/L (21.0-31.0) 11/02/17 13:41 Anion Gap 11.9 (7.0-16.0) 11/02/17 13:41 BUN 19 mg/dL (7-25) 11/02/17 13:41 Creatinine 0.5 mg/dL (0.6-1.2) L 11/02/17 13:41 Est GFR ( Amer) > 60.0 ml/min (>90) 11/02/17 13:41 Est GFR (Non-Af Amer) > 60.0 ml/min 11/02/17 13:41 BUN/Creatinine Ratio 38.0 11/02/17 13:41 Glucose 95 mg/dL (70-105) 11/02/17 13:41 Whole Bld Lactic Acid 0.91 mmol/L (0.60-1.99) 11/02/17 13:41 Calcium 9.9 mg/dL (8.6-10.3) 11/02/17 13:41 Total Bilirubin 0.5 mg/dL (0.3-1.0) 11/02/17 13:41 AST 36 U/L (13-39) 11/02/17 13:41 ALT 51 U/L (7-52) 11/02/17 13:41 Alkaline Phosphatase 91 U/L (34-104) 11/02/17 13:41 Troponin I < 0.01 ng/mL (0.01-0.05) L 11/02/17 13:41 Total Protein 8.1 gm/dL (6.0-8.3) 11/02/17 13:41 Albumin 4.1 gm/dL (3.7-5.3) 11/02/17 13:41 Globulin 4.0 gm/dL 11/02/17 13:41 Albumin/Globulin Ratio 1.0 (1.0-1.8) 11/02/17 13:41 - Physical Exam Vitals and I&O: Vital Signs Temp 96.9 F 11/05/17 12:00 Pulse 105 11/05/17 14:06 Resp 20 11/05/17 14:06 BP 107/59 11/05/17 12:00 Pulse Ox 94 11/05/17 14:06 Intake & Output 06/05/1211/05/17 11/05/17 18:59 06:59 18:59 Intake Total 1269.167 Balance 1269.167 Weight (lbs) 39.746 kg 39.746 kg Intake: Intake, IV Amount 149.167 D5-0.45NS 1,000 ml @ 50 149.167 mls/hr IV .Q20H [facility] Rx#: [id number] Tube Feeding 720 Other 400 Other: # Voids 3 0 # Bowel Movements 1 0 Weight Source Bedscale Bedscale Active Medications: Current Medications Acetaminophen (Tylenol) 650 mg GT Q6HR PRN PRN Reason: TEMP >101 OR PAIN Stop: 01/01/18 18:45 Albuterol/Ipratropium (Duoneb Neb) 3 ml HHN TIDRT [facility] Stop: 01/01/18 22:59 Last Admin: 11/05/17 14:06 Dose: 3 ml Artificial Tears (Artificial Tears Ophth Soln) 2 drop EACH EYE Q6H PRN PRN Reason: Dry Eye Stop: 01/02/18 08:05 Baclofen (Lioresal) 10 mg GT DAILY S[facility]IN Stop: 01/02/18 08:59 Last Admin: 11/05/17 09:44 Dose: 10 mg Benztropine Mesylate (Cogentin) 0.5 mg GT DAILY [facility] Stop: 01/02/18 08:59 Last Admin: 11/05/17 09:46 Dose: 0.5 mg Bisacodyl (Dulcolax 10 Mg Supp) 10 mg RC DAILY PRN PRN Reason: IF MOM INEFFECTIVE Stop: 01/01/18 18:45 Clonazepam (Klonopin) 0.5 mg GT Q12H [facility]; Protocol Stop: 01/01/18 18:59 Last Admin: 11/05/17 07:48 Dose: 0.5 mg Furosemide (Lasix) 20 mg GT BID SELVIN Stop: 01/02/18 08:59 Last Admin: 11/05/17 09:52 Dose: 20 mg Dextrose/Sodium Chloride (D5-0.45ns) 1,000 mls @ 50 mls/hr IV .Q20H [facility] Stop: 01/01/18 16:59 Last Admin: 11/04/17 10:25 Dose: 50 mls/hr Ceftriaxone Sodium 1 gm/ (Dextrose) 50 mls @ 100 mls/hr IV Q24H [facility] Stop: 01/02/18 00:00 Last Admin: 11/05/17 00:16 Dose: 100 mls/hr Lactobacillus Rhamnosus (Culturelle 15b) 1 each GT DAILY S[facility]VIN Stop: 01/03/18 08:59 Last Admin: 11/05/17 09:44 Dose: 1 each Magnesium Hydroxide (Milk Of Magnesia) 30 ml GT DAILY PRN PRN Reason: IF NO BM IN THREE DAYS Stop: 01/01/18 18:45 Metoclopramide HCl (Reglan) 5 mg GT Q8HR [facility] Stop: 01/01/18 18:59 Last Admin: 11/05/17 13:57 Dose: 5 mg Metoprolol Tartrate (Lopressor) 12.5 mg GT Q12HR [facility] Stop: 01/02/18 20:59 Last Admin: 11/05/17 09:52 Dose: 12.5 mg Miscellaneous (Probiotic Screen) 1 ea MC PRN PRN PRN Reason: PROTOCOL Stop: 01/03/18 08:44 General: Alert, No acute distress HEENT: Atraumatic Cardiovascular: Regular rate Abdomen: Bowel sounds Assessment/Plan - Problem List Patient Problems: All Active Problems GASTRIC TUBE MALFUNCTION WITH LEAKAGE (Acute) - Assessment Assessment: status post trach status post peg gtube mallfunction h/o skin graft - Plan Plan: cpm Nutritional Asmnt/Malnutr-PDOC - Dietary Evaluation Malnutrition Findings (Please click <Entered> for more info): Nutritional Asmnt/Malnutrition Start: 11/03/17 15: 52 Text: Status: Complete Freq: Protocol: Document 11/03/17 15:52 LCHENG (Rec: 11/03/17 16:03 [email or web address]) Nutritional Asmnt/Malnutrition Patient General Information Nutritional Screening High Risk Diagnosis malfunctioning G-tube Pertinent Medical Hx/Surgical Hx s/p trach, PEG, cerebral palsy Subjective Information Pt seen non-verbal. pt is on NPO, nutrition support not initiated d/t gtube site infection. Current Diet Order/ Nutrition Support NPO Pertinent Medications D5-0.45ns, lasix, reglan Pertinent Labs 11/02 K 3.3, Cr 0.5 Nutritional Hx/Data Height 1.55 m Height (Calculated Centimeters) 154.9 Current Weight (lbs) 39.463 kg Weight (Calculated Kilograms) 39.5 Weight (Calculated Grams) 17352.5 [place] Body Weight 105 Body Mass Index (BMI) 16.4 Weight Status Underweight GI Symptoms GI Symptoms None Last BM not indicated Difficult in: None Skin Integrity/Comment: gtube site red, rash to neck, scar to left ankle Estimated Nutritional Goals BEE in Kcals: Using Current wt Calories/Kcals/Kg 30-35 Kcals Calculated 0957-0932 Protein: Using Current wt Protein g/k.2 Protein Calculated 48 Fluid: ml 1200-1400ml (1ml/kcal) Nutritional Problem 2. Problem Problem altered nutrition related lab Etiology electrolyte imbalance Signs/Symptoms: K 3.3 1. Problem Problem inadequate energy intake Etiology Gtube malfunction Signs/Symptoms: TF not initaited Malnutrition Alert Is there a minimum of two criteria No selected? Query Text:Check all the applicable criteria. A minimum of two criteria are recommended for diagnosis of either severe or non-severe malnutrition. Malnutrition Related to Morbid Obesity Malnutrition related to morbid obesity No Intervention/Recommendation Comments 1. Monitor NPO status. If tube feeding needed, recommend Jevity 1.2 at 50ml x 20hr. It provides 1200kcal, 54g protein, 810ml free water, meeting 100% of nutritional needs. 2. Monitor wt, skin integrity and labs 3. F/U as high risk in 2-3 days, 11/05-11/06 Expected Outcomes/Goals Expected Outcomes/Goals 1. Pt to meet at least 75% of nutritional needs via nutrition support with tolerance 2. Wt stability, skin to remain intact, labs to approach WNL.
== END 2017-11-05 18:03 | DRG 394 ==
LOC: ER 13:09 → MSI 14:30
PROVIDERS: ADMIT Internal Medicine; ATTEND Internal Medicine
PROC: 0D20XUZ Change Feeding Device in Upper Intestinal Tract, External Approach (ICD-10-PCS; principal; 2017-11-03)
DX: K94.23 Gastrostomy malfunction (principal); L03.311 Cellulitis of abdominal wall; I50.40 Unspecified combined systolic (congestive) and diastolic (congestive) heart failure; G72.81 Critical illness myopathy; R13.10 Dysphagia, unspecified; K21.9 Gastro-esophageal reflux disease without esophagitis; I11.0 Hypertensive heart disease with heart failure; Y84.8 Other medical procedures as the cause of abnormal reaction of the patient, or of later complication, without mention of misadventure at the time of the procedure; Y82.8 Other medical devices associated with adverse incidents
CPT/HCPCS: 36415-UA; 71045-TC; 74000-TC; 80053-TC; 83605; 84484-TC; 85025-TC; 85610-TC; 87070-90; 87075-90; 87205-90; 94640; 94760; J0696; J3480; X7704; Z7610